=== PATIENT | female | born 1990 | race Asian ===

== ENCOUNTER → 2020-05-03 | Outpatient (CLI) | payer OTHER ==
[~2020-05-03] MED LIST: BIRTH CONTROL; IBUP800 PO; OMEP20ER PO; ONDA8 PO; PREN-16 PO; RANI150 PO; RXONDA4ODT MM; SERT25 PO; SERT50 PO
[2020-05-14 10:07] LABS: CHLAMYDIA TRACHOMATIS, NAA Negative (Negative); NEISSERIA GONORRHOEAE, NAA Negative (Negative)
== END | disposition home or self-care (01) ==
LOC: LAB SHORT 11:33 → LAB 11:33
PROVIDERS: Advanced Practice Midwife
DX: Z01.419 Encounter for gynecological examination (general) (routine) without abnormal findings (principal)
CPT/HCPCS: 87491; 87591; 87625; G0123

== ENCOUNTER → 2020-06-12 | Outpatient (CLI) | payer OTHER ==
[2020-06-13 11:47] LABS: Candida species (DNA Probe) Negative (NEGATIVE); G. vaginalis (DNA Probe) Positive (NEGATIVE); T. vaginalis (DNA Probe) Negative (NEGATIVE)
== END | disposition home or self-care (01) ==
LOC: LAB 15:30 → LAB SHORT 15:30
PROVIDERS: Advanced Practice Midwife
DX: Z34.83 Encounter for supervision of other normal pregnancy, third trimester (principal)
CPT/HCPCS: 87480; 87510; 87660

== ENCOUNTER → 2020-07-25 | Outpatient (CLI) | payer OTHER ==
[2020-07-26 10:26] LABS: Candida species (DNA Probe) Negative (NEGATIVE); G. vaginalis (DNA Probe) Positive (NEGATIVE); T. vaginalis (DNA Probe) Negative (NEGATIVE)
== END ==
LOC: LAB SHORT 11:27 → LAB 11:27
PROVIDERS: Obstetrics & Gynecology
DX: N76.0 Acute vaginitis (principal)
CPT/HCPCS: 87480; 87510; 87660

== ENCOUNTER 2020-11-19 06:17 | Inpatient (IN) | payer OTHER ==
[~2020-11-19] VITALS: Ht 170.2 cm; Wt 77.0 kg
[2020-11-19 08:51] LABS: BASOPHILS ABSOLUTE AUTO 0.03 K/mm3 (0.00-0.23); BASOPHILS PERCENT AUTO 0 % (0-2); EOSINOPHILS PERCENT AUTO 1 % (0-6); Hematocrit 35.9 % (33.0-51.0); Hemoglobin 11.6 g/dL (11.5-16.0); IMMATURE GRAN ABSOLUTE AUTO 0.06 K/mm3 (0.00-0.10); IMMATURE GRAN PERCENT AUTO 1 % (0-1); LYMPHOCYTES ABSOLUTE AUTO 2.16 K/mm3 (0.84-5.20); LYMPHOCYTES PERCENT AUTO 27 % (21-46); MONOCYTES ABSOLUTE AUTO 0.73 K/mm3 (0.16-1.47); MONOCYTES PERCENT AUTO 9 % (4-13); Mean Corpuscular HGB 26.1 pg (26.0-34.0); Mean Corpuscular HGB Conc 32.3 g/dL (31.5-36.5); Mean Corpuscular Volume 81 fL (80-100); Mean Platelet Volume 11.2 fL (9.1-12.4); NEUTROPHILS ABSOLUTE AUTO 4.82 K/mm3 (1.96-9.15); NEUTROPHILS PERCENT AUTO 61 % (41-73); NRBC ABSOLUTE 0.02 K/mm3 (0.00-0.02); NRBC Auto 0.3 /100 WBC (0.0-0.2); Platelet Count 184 K/mm3 (150-400); RDW Standard Deviation 37.6 fL (35.1-46.3); Red Blood Cell Count 4.44 M/mm3 (3.80-5.20)
[2020-11-20] MEDS ORDERED: IBUP800 PO (10:50)
--- NOTE | 2020-11-20 11:21 | NUR ---
RN/LC ROUNDED TO HELP W/ . NB NOT SHOWING INTERST IN FEEDING. INSTRUCT/DEMO CORRECT POSITIONING AND LATCHING. INSTRUCT/DEMO HAND EXPRESSION OF COLOSTRUM TO NB. INSTRUCTED PT TO OFFER NB THE BREAST W/ EVERY FEED AND TO OFFER SUPPLEMENT W/ EVERY FEED UNTIL MILK SUPPLY COMES IN. NB HAS FACIAL BRUISING. MOM VERBLAIZED UNDERSTANDING, DENIES ANY FURTHER QUESTIONS OR CONCERNS. PT IS AN EXPERIENCED MOM.
--- NOTE | 2020-11-20 15:18 | NUR ---
AMBULATING OUTSIDE TO SEE FAMILY. DENIES PAIN. NO COMPLAINTS. CARING FOR SELF AND BABY INDEPENDANTLY.
--- NOTE | 2020-11-20 18:37 | NUR ---
PARENTS STILL WANTING TO GO HOME TONIGHT TO SEE OTHER CHILDREN. DISCHARGE TEACHING DONE AND PARENTS VERBALIZE UNDERSTANDING OF TEACHING AND FOLLOW UP APPOINTMENTS. NO QUESTIONS OR CONCERNS.
--- NOTE | 2020-11-20 21:34 | NUR ---
11/20/[id number] pt walked out to car with in carseat by [employer]; car seat placed rear facing by FOB; pt has discharge teaching/ papers for her and both in hand; pt has follow up appt card and clear knowledge of existing appt;
== END 2020-11-20 21:24 | disposition home or self-care (01) | DRG 807 ==
LOC: OBS 06:17 → BC 06:18 → OBS 06:27 → BC 06:28
PROVIDERS: ADMIT Advanced Practice Midwife
PROC: 10E0XZZ Delivery of Products of Conception, External Approach (ICD-10-PCS; principal; 2020-11-19)
PROC: 0KQM0ZZ Repair Perineum Muscle, Open Approach (ICD-10-PCS; 2020-11-19)
PROC: 10907ZC Drainage of Amniotic Fluid, Therapeutic from Products of Conception, Via Natural or Artificial Opening (ICD-10-PCS; 2020-11-19)
PROC: 0UQMXZZ Repair Vulva, External Approach (ICD-10-PCS; 2020-11-19)
DX: O48.0 Post-term pregnancy (principal); Z37.0 Single live birth; O99.613 Diseases of the digestive system complicating pregnancy, third trimester; K02.9 Dental caries, unspecified; Z20.822 Contact with and (suspected) exposure to COVID-19; Z3A.40 40 weeks gestation of pregnancy; Z90.49 Acquired absence of other specified parts of digestive tract; Z98.890 Other specified postprocedural states; Z88.0 Allergy status to penicillin; Z88.5 Allergy status to narcotic agent; Z88.6 Allergy status to analgesic agent; Z91.018 Allergy to other foods
CPT/HCPCS: 36415; 85025; 86850; 86900; 86901; 88307; A9270; J2001; J2210; J2590; J3010; J7120

== ENCOUNTER → 2022-07-02 | Outpatient (CLI) | payer OTHER ==
[2022-07-02 14:06] LABS: Candida species (DNA Probe) Positive (NEGATIVE); G. vaginalis (DNA Probe) Negative (NEGATIVE); T. vaginalis (DNA Probe) Negative (NEGATIVE)
== END ==
LOC: LAB 09:34 → LAB SHORT 09:34
PROVIDERS: Advanced Practice Midwife
DX: N76.0 Acute vaginitis (principal)
CPT/HCPCS: 87480; 87510; 87660

== ENCOUNTER → 2022-08-01 | Outpatient (CLI) | payer OTHER ==
[2022-08-02 13:59] LABS: Candida species (DNA Probe) Negative (NEGATIVE); G. vaginalis (DNA Probe) Negative (NEGATIVE); T. vaginalis (DNA Probe) Negative (NEGATIVE)
[2022-08-06 03:11] LABS: CHLAMYDIA TRACHOMATIS, NAA Negative (Negative); HPV 16 Negative (Negative); HPV 18 Negative (Negative); HPV OTHER HR TYPES Negative (Negative)
== END | disposition home or self-care (01) ==
LOC: LAB SHORT 15:35
PROVIDERS: Advanced Practice Midwife
DX: Z01.419 Encounter for gynecological examination (general) (routine) without abnormal findings (principal); Z11.3 Encounter for screening for infections with a predominantly sexual mode of transmission; B37.31 Acute candidiasis of vulva and vagina
CPT/HCPCS: 87480; 87491; 87510; 87591; 87624; 87660; G0123

== ENCOUNTER → 2023-01-05 | Outpatient (CLI) | payer OTHER ==
[2023-01-06 10:26] LABS: Candida species (DNA Probe) Negative (NEGATIVE); G. vaginalis (DNA Probe) Positive (NEGATIVE); T. vaginalis (DNA Probe) Negative (NEGATIVE)
== END | disposition home or self-care (01) ==
LOC: LAB SHORT 17:26 → LAB 17:26
PROVIDERS: Advanced Practice Midwife
DX: O09.93 Supervision of high risk pregnancy, unspecified, third trimester (principal); O23.593 Infection of other part of genital tract in pregnancy, third trimester
CPT/HCPCS: 87081; 87150; 87480; 87510; 87660

== ENCOUNTER 2023-01-16 13:35 | Inpatient (IN) | payer OTHER ==
[~2023-01-16] VITALS: Ht 170.2 cm; Wt 80.0 kg
[2023-01-16 13:52] VITALS: BP 112/52
[2023-01-16 15:15] VITALS: BP 122/74
--- NOTE | 2023-01-16 16:41 | NUR ---
Spiritual Care Attempted. Pt. had requested Spiritual Care, yet at time of visit Pt. was in active labor and declined. Will remain available to Pt. and family until end of shift. Informed Pts. nurse that environmental health and safety intern will be "front desk assistant" after 7pm.
[2023-01-16 17:30] VITALS: BP 118/75
[2023-01-16 19:17] VITALS: BP 118/78
[2023-01-16 19:24] VITALS: BP 118/78
[2023-01-17 04:53] VITALS: BP 114/72
[2023-01-17 12:20] VITALS: BP 98/75
[2023-01-17 16:02] VITALS: BP 100/74
[2023-01-17 19:32] VITALS: BP 116/72
[2023-01-17 19:33] VITALS: BP 116/72
[2023-01-18] VITALS (8 sets, daily range): BP systolic 95–123; BP diastolic 57–73
--- NOTE | 2023-01-18 19:06 | NUR ---
REPORT TO JUICE MOSS
[2023-01-19 00:37] VITALS: BP 75/49
[2023-01-19 01:43] VITALS: BP 93/57
[2023-01-19 04:48] VITALS: BP 98/63
[2023-01-19 07:20] VITALS: BP 106/72
--- NOTE | 2023-01-19 09:45 | NUR ---
"Spiritual Care Attempted | Pt. Request Nurse checked with Pt. Pt. declined Spiritual Care visit."
[2023-01-19 12:48] VITALS: BP 109/71
== END 2023-01-19 13:25 | disposition home or self-care (01) | DRG 807 ==
LOC: OBS 13:35 → BC 13:37 → OBS 15:49 → BC 15:49
PROVIDERS: ADMIT Advanced Practice Midwife
PROC: 10E0XZZ Delivery of Products of Conception, External Approach (ICD-10-PCS; principal; 2023-01-18)
PROC: 10H07YZ Insertion of Other Device into Products of Conception, Via Natural or Artificial Opening (ICD-10-PCS; 2023-01-18)
DX: O42.02 Full-term premature rupture of membranes, onset of labor within 24 hours of rupture (principal); Z37.0 Single live birth; O24.429 Gestational diabetes mellitus in childbirth, unspecified control; O69.1XX0 Labor and delivery complicated by cord around neck, with compression, not applicable or unspecified; O70.0 First degree perineal laceration during delivery; Z3A.37 37 weeks gestation of pregnancy; Z98.890 Other specified postprocedural states; Z90.49 Acquired absence of other specified parts of digestive tract; Z88.2 Allergy status to sulfonamides; Z88.0 Allergy status to penicillin; Z88.1 Allergy status to other antibiotic agents; Z88.5 Allergy status to narcotic agent; Z79.899 Other long term (current) drug therapy
CPT/HCPCS: A9270; C1751; J2590; J7120

== ENCOUNTER → 2024-06-17 | Outpatient (CLI) | payer OTHER | LOC: LAB 13:03 → LAB SHORT 13:03 | DX: J02.9 Acute pharyngitis, unspecified (principal) | CPT/HCPCS: 87081 ==

== ENCOUNTER → 2024-10-19 | Outpatient (CLI) | payer OTHER ==
[2024-10-19 15:28] LABS: Bacterial Vaginosis PCR Negative (NEGATIVE); Candida Group, PCR NOT DETECTED (NOT DETECT)
[2024-10-19 15:30] LABS: Candida glabrata-krusei, PCR DETECTED (NOT DETECT)
== END ==
LOC: LAB 09:58 → LAB SHORT 09:58
PROVIDERS: Advanced Practice Midwife
DX: N76.0 Acute vaginitis (principal)
CPT/HCPCS: 81515

== ENCOUNTER → 2025-04-14 | Outpatient (CLI) | payer OTHER ==
[2025-04-14 19:22] LABS: Bacterial Vaginosis PCR Negative (NEGATIVE); Candida Group, PCR NOT DETECTED (NOT DETECT)
[2025-04-14 19:24] LABS: Candida glabrata-krusei, PCR DETECTED (NOT DETECT)
== END ==
LOC: LAB 15:53 → LAB SHORT 15:53
PROVIDERS: Advanced Practice Midwife
DX: N89.8 Other specified noninflammatory disorders of vagina (principal)
CPT/HCPCS: 81515

== ENCOUNTER → 2025-05-19 | Outpatient (CLI) | payer OTHER ==
[2025-05-19 13:30] LABS: Bacterial Vaginosis PCR Negative (NEGATIVE); Candida Group, PCR NOT DETECTED (NOT DETECT)
[2025-05-19 13:51] LABS: Candida glabrata-krusei, PCR DETECTED (NOT DETECT)
== END ==
LOC: LAB 10:45 → LAB SHORT 10:45
PROVIDERS: Advanced Practice Midwife
DX: N76.0 Acute vaginitis (principal)
CPT/HCPCS: 81515

== ENCOUNTER → 2025-07-18 | Outpatient (CLI) | payer OTHER ==
[2025-07-18 19:58] LABS: Bacterial Vaginosis PCR Negative (NEGATIVE); Candida Group, PCR NOT DETECTED (NOT DETECT)
[2025-07-19 00:34] LABS: Candida glabrata-krusei, PCR DETECTED (NOT DETECT)
== END | disposition home or self-care (01) ==
LOC: LAB SHORT 17:36 → LAB 17:36
PROVIDERS: Advanced Practice Midwife
DX: N76.0 Acute vaginitis (principal)
CPT/HCPCS: 81515